=== PATIENT | male | born 1960 | race Caucasian/White ===

== ENCOUNTER 2017-06-09 01:52 | Inpatient (IN) | payer MEDICAID ==
[2017-06-09 02:17] LABS: URINE MICROSCOPIC INDICATED? YES; URINE SOURCE RANDOM
[2017-06-09 02:20] LABS: % BASOPHILS 0.4 % (0.0-2.0); % EOSINOPHILS 1.3 % (0.0-5.0); % LYMPHOCYTES 20.1 % (20.0-50.0); % MONOCYTES 4.3 % (2.0-10.0); % NEUTROPHILS 73.9 % (40.0-80.0); EOSINOPHILE ABSOLUTE 0.2 Th/cmm (0.1-0.4); HEMATOCRIT 50.6 % (41.0-60); HEMOGLOBIN 17.1 gm/dL (12-16); LYMPHOCYTE ABSOLUTE 2.3 Th/cmm (1.5-3.0); MEAN CELL VOLUME 94.4 fl (80-99); MEAN CORPUSCULAR HGB CONC 33.9 pg (28.0-36.0); MEAN PLATELET VOLUME 8.6 fl; MONOCYTE ABSOLUTE 0.5 Th/cmm (0.3-1.0); NEUTROPHILE ABSOLUTE 8.6 Th/cmm (1.8-8.0); PLATELET COUNT 245 Th/cmm (150-400); RED BLOOD COUNT 5.36 Mil/cmm (4.30-5.70); RED CELL DISTRIBUTION WIDTH 12.9 % (11.5-20.0); WHITE BLOOD COUNT 11.6 Th/cmm (4.8-10.8)
[2017-06-09 02:21] LABS: URINE BILIRUBIN NEGATIVE (NEGATIVE); URINE BLOOD NEGATIVE (NEGATIVE); URINE CLARITY CLEAR (CLEAR); URINE COLOR YELLOW; URINE GLUCOSE (UA) NEGATIVE (NEGATIVE); URINE KETONE NEGATIVE (NEGATIVE); URINE LEUKOCYTE ESTERASE NEGATIVE (NEGATIVE); URINE NITRATE NEGATIVE (NEGATIVE); URINE PH 5.5 (4.6 - 8.0); URINE PROTEIN NEGATIVE (NEGATIVE); URINE UROBILINOGEN 0.2 E.U./dL (0.2 - 1.0)
[2017-06-09 02:22] LABS: URINE EPITHELIAL CELLS OCCASIONAL /lpf (FEW); URINE RBC NONE SEEN /hpf (0-5); URINE WBC 0-2 /hpf (0-5)
[2017-06-09 02:23] LABS: URINE BACTERIA OCCASIONAL /hpf (NONE SEEN)
[2017-06-09 02:34] LABS: ALB/GLOB RATIO 1.6 (1.0-1.8); ALBUMIN 4.6 gm/dL (4.2-5.5); ALKALINE PHOSPHATASE 96 U/L (34-104); AMYLASE SERUM 27 U/L (29-103); ANION GAP 9.6 (7.0-16.0); BILIRUBIN,TOTAL 0.4 mg/dL (0.3-1.0); BUN - UREA NITROGEN 16 mg/dL (7-25); CALCIUM SERUM 9.3 mg/dL (8.6-10.3); CARBON DIOXIDE 27.7 mEq/L (21.0-31.0); CHLORIDE 103 mEq/L (98-107); CREATININE - SERUM 0.9 mg/dL (0.7-1.3); GFR AFRICAN-AMERICAN > 60.0 ml/min (>90); GFR NON AFRICAN-AMERICAN > 60.0 ml/min; GLUCOSE 118 mg/dL (70-105); LIPASE 31 U/L (11-82); POTASSIUM SERUM 4.3 mEq/L (3.5-5.1); SGOT 18 U/L (13-39); SGPT/ALT 18 U/L (7-52); SODIUM SERUM 136 mEq/L (136-145); TOTAL PROTEIN,SERUM 7.5 gm/dL (6.0-8.3)
--- NOTE | 2017-06-09 02:36 | ED Physician Chart ---
ED Chief Complaint/HPI - Patient Information Date Seen:: 06/09/17 Time Seen:: 02:29 Chief Complaint:: Abdominal pain History of Present Illness:: 57 yo overweight male first developed sudden onset of epigastric abdominal pain 2 days ago. The crampy pain was 4/10, lasted for 4 hours, subsided spontaneously. Today, the similar pain started at 9pm, crampy pain, 8/10, nausea , no vomiting, radiating to back. The patient vomited once with food content in the ER. Afterwards, the epigastric abdominal pain decreased to 4/10. He had a history of umbilical hernia due to blunt trauma 12 yrs ago followed by surgical repair. The umbilical hernia recurred 3 years ago. Allergies:: Allergies Allergy/AdvReac Type Severity Reaction Status Date / Time ibuprofen [From Advil] Allergy Verified 06/09/17 02:00 Vitals:: Vital Signs - 8 hr 06/09/17 01:55 Temp 97.9 F HR 99 RR 18 BP 160/72 O2 Sat % 98 ED Review of Systems - Review of Systems General/Constitutional: No fever, No chills Skin: No skin lesions Head: No headache Eyes: No loss of vision ENT: No earache Neck: No neck pain Cardio Vascular: No chest pain, No palpitations Pulmonary: No SOB GI: Nausea, Pain ED Past Medical History - Past Medical History Past Medical History: No significant medical hx Social History: Smoker, Alcohol, No Drug Use Surgical History: other (ventral hernia repair) Family Medical History - Family Member Mother History Unknown: Yes Ethnicity: ED Physical Exam - Physical Examination General/Constitutional: Awake, Alert Head: Atraumatic Eyes: PERRL, EOMI Skin: No skin lesions ENMT: Nasal exam nl Neck: Full ROM w/o pain Respiratory: Clear to Auscultation, No Wheeze/Rhonchi/Rales Cardio Vascular: RRR, No murmur, gallop, rubs, NL S1 S2 Other GI comments:: Epigastric tenderness, non-distended, no CVA percussion tenderness. A small umbilical hernia. : No CVA tenderness Extremities: normal strength in all extremities Neuro/Psych: No focal deficits ED Labs/Radiology/EKG Results - Lab Results Results: Laboratory Tests 06/09/17 06/09/17 02:00 02:12 WBC 11.6 H RBC 5.36 Hgb 17.1 Hct 50.6 MCV 94.4 MCH 32.0 H MCHC Differential 33.9 RDW 12.9 Plt Count 245 MPV 8.6 Neutrophils % 73.9 Lymphocytes % 20.1 Monocytes % 4.3 Eosinophils % 1.3 Basophils % 0.4 Urine Source RANDOM Urine Color YELLOW Urine Clarity CLEAR Urine pH 5.5 Ur Specific [place] 1.025 Urine Protein NEGATIVE Urine Glucose (UA) NEGATIVE Urine Ketones NEGATIVE Urine Blood NEGATIVE Urine Nitrate NEGATIVE Urine Bilirubin NEGATIVE Urine Urobilinogen 0.2 Ur Leukocyte Esterase NEGATIVE Urine RBC NONE SEEN Urine WBC 0-2 Ur Epithelial Cells OCCASIONAL Urine Bacteria OCCASIONAL - Radiology Results Results: CT abdomen non-contrast: cholelithiasis and cholecystitis ED Assessment - Assessment General Assessment: 57 yo male with sudden onset of epigastric abdominal pain with N/V. CT abdomen showed cholelithiasis and cholecystitis. Critical Care Time: 50 min Excludes all billable procedures: Yes This condition life threatening/high prob of deterioration: No Assessment/Comments:: CBC, CMP, amylase, lipase CT abdomen Morphine NS 1L IV bolus Zosyn Admit to med surg ED Septic Shock - . Is Septic Shock (SBP<90, OR Lactate>4 mmol\L) present?: No - <6hrs of presentation: Vital Signs: Vital Signs - 8 hr 06/09/17 01:55 Temp 97.9 F HR 99 RR 18 BP 160/72 O2 Sat % 98 ED Reassessment (Disposition) - Reassessment Reassessment Condition:: Improved - Patient Disposition Discharge/Transfer:: Acute Care w/in this hosp Admitting Medical Physician:: Oscar Quintanilla
[2017-06-09 02:40] LABS: AMPHETAMINE URINE NEGATIVE (NEGATIVE); BARBITURATES URINE NEGATIVE (NEGATIVE); BENZODIAZEPINES QUAL URINE NEGATIVE (NEGATIVE); CANNABINOID THC NEGATIVE (NEGATIVE); COCAINE METABOLITE QUAL URINE NEGATIVE (NEGATIVE); METHADONE URINE NEGATIVE (NEGATIVE); METHAMPHETAMINES QUAL URINE NEGATIVE (NEGATIVE); OPIATES (MORPHINE) QUAL. URINE NEGATIVE (NEGATIVE); PHENCYCLIDINE (PCP) URINE NEGATIVE (NEGATIVE); TRICYCLICS (TCA) QUAL. URINE NEGATIVE (NEGATIVE)
[2017-06-09] MEDS ORDERED: Morphine Sulfate 2 mg/mL 1mL Syr ONE ×2 (03:05)
[2017-06-09] MEDS ORDERED: Sodium Chloride 0.9% 1,000 ML IV ONE ×2 (04:48)
[2017-06-09] MEDS ORDERED: Piperacillin Sodium/Tazobact 3.375 gm Vial IV ONE ×2 (04:53)
[2017-06-09] MEDS ORDERED: Sodium Chloride 0.9% 1,000 ML IV SCH ×4 (06:03→08:45)
[2017-06-09] MEDS ORDERED: HYDROmorphone 1 mg/mL 1mL Syr IVP PRN ×2 (06:03)
--- NOTE | 2017-06-09 07:10 | Diagnostic Imaging Report ---
Exam: CT examination of the abdomen pelvis. HISTORY: Abdominal pain. Total DLP equals 548 CTDI equals 10.3 Findings: Multiple contiguous thin section of the abdomen pelvis obtained from lower thorax to pubic symphysis without administration of oral or intravenous contrast material. No prior studies available for comparison. The study demonstrates normal aeration of lung parenchyma. There is evidence for small hiatal hernia The liver and spleen intact. There is evidence for cholelithiasis large calculus in the most dependent portion of gallbladder measuring 1.4 cm diameter. Ultrasound examination of gallbladder is recommended. Gallbladder wall somewhat thickened. The adrenal glands intact. The kidneys demonstrate no evidence of obstructive uropathy or nephrolithiasis. The bowel gas distribution nonspecific. The appendix is intact. Mild atherosclerotic calcification of the iliac vessels appreciated. There is no evidence of diverticular disease of diverticulitis. There is evidence for left inguinal hernia containing fat. Bony structures demonstrate no evidence for lytic or blastic changes. Degenerative changes of lower lumbar cervical spine with anterior listhesis of L5 L5 vertebral bodies. The urinary demonstrates mild thickening of the urinary bladder wall which might be due to lack of distention. IMPRESSION: 1. Distended gallbladder, cholelithiasis. Ultrasound examination of the gallbladder is recommended. 2. Small hiatal hernia. 3. Urinary bladder wall thickening.
--- NOTE | 2017-06-09 08:55 | History and Physical ---
History of Present Illness - HPI Chief Complaint: Abdominal pain HPI: Patient reports that 4 days ago started with middle abdominal pain that lasted x 4 hours, pain came back yesterday but more iontense, reazon why he came to ER. Vital Signs: Last Vital Signs Temp 98.1 F 06/09/17 08:00 Pulse 60 06/09/17 08:00 Resp 18 06/09/17 08:00 BP 117/67 06/09/17 08:00 Pulse Ox 98 06/09/17 08:00 Past Medical History Cardiovascular: Report: No Pertinent Hx Pulmonary: Report: No Pertinent Hx [employer]: Report: No Pertinent Hx GI: Report: No Pertinent Hx Psych: Report: No Pertinent Hx Musculoskeletal: Report: No Pertinent Hx Rheumatologic: Report: No pertinent Hx Infectious Disease: Report: No Pertinent Hx Renal/: Report: No Pertinent Hx Endocrine: Report: No Pertinent Hx Dermatology: Report: No Pertinent Hx - Past Surgical History Past Surgical History: Other (Umbilical hernia repair) Family Medical History - Family Member Mother History Unknown: Yes Ethnicity: Social History Smoke: <1 pack per day Alcohol: Social Drugs: None Lives: With Family Domestic Violence: Negative - Medications Home Medications: Home Medication Medication Instructions Recorded Type NK [No Home Meds] 06/09/17 History - Allergies Allergies/Adverse Reactions: Allergies Allergy/AdvReac Type Severity Reaction Status Date / Time ibuprofen [From Advil] Allergy Verified 06/09/17 02:00 Review of Systems - Review of Systems Constitutional: Report: No Significant Eyes: Report: No Significant ENT: Report: No Significant Respiratory: Report: No Significant Cardiovascular: Report: No Significant Gastrointestinal: Report: Abdominal Pain Genitourinary: Report: No Significant Musculoskeletal: Report: No Significant Skin: Report: No Significant Neurological: Report: No Significant Physical Exam - Physical Exam HEENT: Report: Ears Nose Throat within normal limits Neck: Report: Within normal limits Cardiovascular Systems: Report: Regular, Rate and Rhythm Respiratory: Report: Breath Sounds are within normal limits Abdomen: Report: Tender to palpation (Small umbilical hernia) Back: Report: Inspection of back is within normal limits. Extremities: Report: Non-tender to palpation. Skin: Report: Color of skin is within normal limits Neuro/Psych: Report: Mood affect is within normal limits - Lab Results All Lab Results last 24 hours: Laboratory Results - last 24 hr 06/09/17 06:07 POC Glucose 125 H - Assessment Assessment: Patient is awake, alert, calm in no acute distress. Abdominal CT shows Cholecystitis and cholelithiasis. - Plan Plan: Patient is in NPO, IV NS, AB, pain control. Abdominal US requested. Surgery consult requested.
--- NOTE | 2017-06-09 09:49 | General Progress Note ---
Subjective - Review of Systems Service Date: 06/09/17 Events since last encounter: consult dictated CT scan noted labs normal PE minimal tenderness Plan: non urgent surgery check insurance status, refer to [facility]? Objective - Results Result Diagrams: 06/09/17 02:12 06/09/17 02:12 Recent Labs: Laboratory Last Values WBC 11.6 Th/cmm (4.8-10.8) H 06/09/17 02:12 RBC 5.36 Mil/cmm (4.30-5.70) 06/09/17 02:12 Hgb 17.1 gm/dL (12-16) 06/09/17 02:12 Hct 50.6 % (41.0-60) 06/09/17 02:12 MCV 94.4 fl (80-99) 06/09/17 02:12 MCH 32.0 pg (26.0-30.0) H 06/09/17 02:12 MCHC Differential 33.9 pg (28.0-36.0) 06/09/17 02:12 RDW 12.9 % (11.5-20.0) 06/09/17 02:12 Plt Count 245 Th/cmm (150-400) 06/09/17 02:12 MPV 8.6 fl 06/09/17 02:12 Neutrophils % 73.9 % (40.0-80.0) 06/09/17 02:12 Lymphocytes % 20.1 % (20.0-50.0) 06/09/17 02:12 Monocytes % 4.3 % (2.0-10.0) 06/09/17 02:12 Eosinophils % 1.3 % (0.0-5.0) 06/09/17 02:12 Basophils % 0.4 % (0.0-2.0) 06/09/17 02:12 Sodium 136 mEq/L (136-145) 06/09/17 02:12 Potassium 4.3 mEq/L (3.5-5.1) 06/09/17 02:12 Chloride 103 mEq/L (98-107) 06/09/17 02:12 Carbon Dioxide 27.7 mEq/L (21.0-31.0) 06/09/17 02:12 Anion Gap 9.6 (7.0-16.0) 06/09/17 02:12 BUN 16 mg/dL (7-25) 06/09/17 02:12 Creatinine 0.9 mg/dL (0.7-1.3) 06/09/17 02:12 Est GFR ( Amer) > 60.0 ml/min (>90) 06/09/17 02:12 Est GFR (Non-Af Amer) > 60.0 ml/min 06/09/17 02:12 BUN/Creatinine Ratio 17.8 06/09/17 02:12 Glucose 118 mg/dL (70-105) H 06/09/17 02:12 POC Glucose 125 MG/DL (70 - 105) H 06/09/17 06:07 Calcium 9.3 mg/dL (8.6-10.3) 06/09/17 02:12 Total Bilirubin 0.4 mg/dL (0.3-1.0) 06/09/17 02:12 AST 18 U/L (13-39) 06/09/17 02:12 ALT 18 U/L (7-52) 06/09/17 02:12 Alkaline Phosphatase 96 U/L (34-104) 06/09/17 02:12 Total Protein 7.5 gm/dL (6.0-8.3) 06/09/17 02:12 Albumin 4.6 gm/dL (4.2-5.5) 06/09/17 02:12 Globulin 2.9 gm/dL 06/09/17 02:12 Albumin/Globulin Ratio 1.6 (1.0-1.8) 06/09/17 02:12 Amylase 27 U/L (29-103) L 06/09/17 02:12 Lipase 31 U/L (11-82) 06/09/17 02:12 Urine Source RANDOM 06/09/17 02:00 Urine Color YELLOW 06/09/17 02:00 Urine Clarity CLEAR (CLEAR) 06/09/17 02:00 Urine pH 5.5 (4.6 - 8.0) 06/09/17 02:00 Ur Specific [place] 1.025 (1.005-1.030) 06/09/17 02:00 Urine Protein NEGATIVE mg/dL (NEGATIVE) 06/09/17 02:00 Urine Glucose (UA) NEGATIVE mg/dL (NEGATIVE) 06/09/17 02:00 Urine Ketones NEGATIVE mg/dL (NEGATIVE) 06/09/17 02:00 Urine Blood NEGATIVE (NEGATIVE) 06/09/17 02:00 Urine Nitrate NEGATIVE (NEGATIVE) 06/09/17 02:00 Urine Bilirubin NEGATIVE (NEGATIVE) 06/09/17 02:00 Urine Urobilinogen 0.2 E.U./dL (0.2 - 1.0) 06/09/17 02:00 Ur Leukocyte Esterase NEGATIVE (NEGATIVE) 06/09/17 02:00 Urine RBC NONE SEEN /hpf (0-5) 06/09/17 02:00 Urine WBC 0-2 /hpf (0-5) 06/09/17 02:00 Ur Epithelial Cells OCCASIONAL /lpf (FEW) 06/09/17 02:00 Urine Bacteria OCCASIONAL /hpf (NONE SEEN) 06/09/17 02:00 Urine Opiates Screen NEGATIVE (NEGATIVE) 06/09/17 02:00 Urine Methadone Screen NEGATIVE (NEGATIVE) 06/09/17 02:00 Ur Barbiturates Screen NEGATIVE (NEGATIVE) 06/09/17 02:00 Ur Tricyclics Screen NEGATIVE (NEGATIVE) 06/09/17 02:00 Ur Phencyclidine Scrn NEGATIVE (NEGATIVE) 06/09/17 02:00 Amphetamines Screen NEGATIVE (NEGATIVE) 06/09/17 02:00 U Methamphetamines Scrn NEGATIVE (NEGATIVE) 06/09/17 02:00 U Benzodiazepines Scrn NEGATIVE (NEGATIVE) 06/09/17 02:00 U Cocaine Metab Screen NEGATIVE (NEGATIVE) 06/09/17 02:00 U Cannabinoids Screen NEGATIVE (NEGATIVE) 06/09/17 02:00 - Physical Exam Vitals and I&O: Vital Signs Temp 98.1 F 06/09/17 08:00 Pulse 60 06/09/17 08:00 Resp 18 06/09/17 08:00 BP 117/67 06/09/17 08:00 Pulse Ox 98 06/09/17 08:00 Intake & Output 06/08/17 06/09/17 06/09/17 18:59 06:59 18:59 Intake Total 616.667 Balance 616.667 Intake: Intake, IV Amount 616.667 Piperacillin Sodium/ 50 Tazobact 3.375 gm In Sodium Chloride 0.9% 50 ml @ 100 mls/hr IV X1 ONE Rx#:[id number] Sodium Chloride 0.9% 1, 566.667 000 ml @ Wide Open IV . Q0M ONE Rx#:[id number] Active Medications: Current Medications Hydromorphone HCl (Dilaudid) 1 mg IVP Q6HR PRN PRN Reason: Pain (Severe) Stop: 08/08/17 06:02 Piperacillin Sod/Tazobactam (Sod 3.375 gm/ Sodium Chloride) 50 mls @ 100 mls/ hr IV Q6HR TOM Stop: 08/08/17 11:59 Sodium Chloride (Nacl 0.9%) 1,000 mls @ 100 mls/hr IV .Q10H TOM Stop: 08/08/17 08:44 Pantoprazole Sodium (Protonix) 40 mg IVP DAILY TOM Stop: 08/08/17 08:59 - Procedures Procedures: Procedures Procedure Code Date INJECT/INFUSE NEC 99.29 03/17/11
--- NOTE | 2017-06-09 10:42 | Diagnostic Imaging Report ---
Exam: Ultrasound summation abdomen. HISTORY: Cholelithiasis. Findings: Real-time ultrasound examination abdomen performed multiple planes. The study demonstrates normal echogenicity liver parenchyma. The gallbladder is distended with thickening of gallbladder wall. There is no evidence of pericholecystic fluid collection. There is evidence for cholelithiasis ,calculus measures 2 cm diameter. The common bile duct not visualized ,the pancreas poorly seen. There is no evidence of obstructive uropathy or nephrolithiasis. Right kidney measures 11.1 x 4.8 x 5.1. Left kidney measures 11.5 x 5.6 x 5.2 cm. The spleen is intact. No free fluid is noted. IMPRESSION: cholelithiasis, distended gallbladder thickening gallbladder wall clinical correlation recommended.
--- NOTE | 2017-06-09 14:09 | Consultation ---
DATE OF CONSULTATION: 06/09/2017 REFERRING PHYSICIAN: Dr. Quintanilla. CHIEF COMPLAINT: Abdominal pain. Thank you for referring this patient to me. HISTORY OF PRESENT ILLNESS: A 57-year-old male who comes in because of history of abdominal pain with nausea and vomiting. In the Emergency Room, he underwent CT scan which showed stone in the gallbladder neck, which was rather large. Ultrasound was done, report of which is not back today. LABORATORY STUDIES: WBC is slightly high at 11,600. Liver function tests are normal. Amylase is low at 27. Surgery in the past, umbilical hernia repair 12 years ago, ____. The patient claims that 2 years ago, he developed tendonitis in the right foot and right shoulder, which made him disabled and has not worked since. PHYSICAL EXAMINATION: Umbilical hernia was noted. There is minimal tenderness in right upper quadrant. RECOMMENDATIONS: In view of the first episode of cholecystitis with no urgency for surgery. The patient's insurance status not verified, possibility of referring him to [facility] might be considered. We will follow as needed. JOB# [id number]
== END 2017-06-09 15:18 | disposition home or self-care (01) ==
LOC: ER 01:52 → MSI 05:09
PROVIDERS: ADMIT General Practice; ATTEND General Practice
DX: K80.10 Calculus of gallbladder with chronic cholecystitis without obstruction (principal); E66.3 Overweight; K42.9 Umbilical hernia without obstruction or gangrene; F17.210 Nicotine dependence, cigarettes, uncomplicated; Z88.6 Allergy status to analgesic agent; Z68.27 Body mass index [BMI] 27.0-27.9, adult
CPT/HCPCS: 36415-UA; 76700-TC; 80053-TC; 80307; 81001-TC; 82150-TC; 82948-90; 83690-TC; 85025-TC; 96375; C9113; J2270; J2405; J2543; J7030; Z7502

== ENCOUNTER 2017-06-17 16:21 | Emergency (ER) | payer MEDICAID ==
[2017-06-17] MEDS ORDERED: Sodium Chloride 0.9% 1,000 ML IV ONE ×2 (16:32)
--- NOTE | 2017-06-17 16:40 | ED Physician Chart ---
ED Chief Complaint/HPI - Patient Information Date Seen:: 06/17/17 Time Seen:: 16:25 Chief Complaint:: epigastric pain History of Present Illness:: Patient's had epigastric pain for 8 days. He vomited once but had no diarrhea. No chills or fever. Patient was seen here 8 days ago for the same pain. Ultrasound showed a distended gallbladder with thickening of the gallbladder wall and a 2 cm calculus. CAT scan showed a 1.4 cm gallbladder stone. Allergies:: Allergies Allergy/AdvReac Type Severity Reaction Status Date / Time No Known Allergies Allergy Verified 06/17/17 16:33 Historian:: Patient, Family Member Review:: Nurse's Note Reviewed ED Review of Systems - Review of Systems General/Constitutional: No fever, No chills Skin: No skin lesions Head: No headache Eyes: No loss of vision ENT: No earache Neck: No neck pain Cardio Vascular: No chest pain, No palpitations Pulmonary: No SOB GI: Nausea, Vomiting, No diarrhea G/U: No dysuria Musculoskeletal: No bone or joint pain Endocrine: No polyuria, No polydipsia Psychiatric: No prior psych history Hematopoietic: No bruising Allergic/Immuno: No urticaria Neurological: No syncope ED Past Medical History - Past Medical History Past Medical History: No significant medical hx Family Medical History - Family Member Mother History Unknown: Yes Ethnicity: Living Status: Still Living Hx Family Cancer: No Hx Family Coronary Artery Disease: No Hx Family Congestive Heart Failure: No Hx Family Hypertension: No Hx Family Stroke: No Hx Family Diabetes: No Hx Family Seizures: No Hx Family Dementia: No Hx Family AIDS: No Hx Family HIV: No Hx Family COPD: No Hx Family Hepatitis: No Hx Family Psychiatric Problems: No Hx Family Tuberculosis: No ED Physical Exam - Physical Examination General/Constitutional: Well-developed, well-nourished, Alert, No distress Head: Atraumatic Eyes: Lids, conjuctiva normal, PERRL Skin: Nl inspection ENMT: External ears, nose nl Neck: No nuchal rigidity Respiratory: Nl effort/Exclusion, Clear to Auscultation Cardio Vascular: RRR, No murmur, gallop, rubs, NL S1 S2 GI: No organomegaly, No hernia, Normal BS's, Nondistended, No mass/bruits, No McBurney tenderness Other GI comments:: Epigastric and right upper quadrant tenderness : No CVA tenderness Extremities: Normal digits & nails Neuro/Psych: No focal deficits ED Labs/Radiology/EKG Results - Lab Results Results: Laboratory Results - last 24 hr 06/17/17 06/17/17 06/17/17 16:38 16:38 16:38 WBC 13.3 H RBC 5.18 Hgb 16.3 Hct 48.9 MCV 94.4 MCH 31.5 H MCHC Differential 33.3 RDW 12.5 Plt Count 251 MPV 8.8 Neutrophils % 85.8 H Lymphocytes % 9.8 L Monocytes % 2.8 Eosinophils % 0.4 Basophils % 1.2 Sodium 131 L Potassium 4.4 Chloride 99 Carbon Dioxide 26.1 Anion Gap 10.3 BUN 16 Creatinine 0.9 Est GFR ( Amer) > 60.0 Est GFR (Non-Af Amer) > 60.0 BUN/Creatinine Ratio 17.8 Glucose 122 H Whole Bld Lactic Acid 1.43 Calcium 9.6 Total Bilirubin 0.8 AST 16 ALT 23 Alkaline Phosphatase 88 Total Protein 7.5 Albumin 4.6 Globulin 2.9 Albumin/Globulin Ratio 1.6 Lipase 9 L ED Assessment - Assessment General Assessment: At 1815 patient apparently sleeping and when awakened he stated the pain was much improved. ED Septic Shock - . Is Septic Shock (SBP<90, OR Lactate>4 mmol\L) present?: No ED Reassessment (Disposition) - Reassessment Reassessment Condition:: Improved - Diagnosis Diagnosis:: Biliary colic; leukocytosis - Aftercare/Follow up Instructions Aftercare/Follow-Up Instructions:: Refer to Discharge Instructions Medication Prescribed:: Ibuprofen 400 mg #30 to take 1 3 times a day as necessary for pain - Patient Disposition Discharge/Transfer:: Home Condition at Disposition:: Stable, Improved
[2017-06-17 16:47] LABS: % BASOPHILS 1.2 % (0.0-2.0); % EOSINOPHILS 0.4 % (0.0-5.0); % LYMPHOCYTES 9.8 % (20.0-50.0); % MONOCYTES 2.8 % (2.0-10.0); % NEUTROPHILS 85.8 % (40.0-80.0); BASOPHILE ABSOLUTE 0.2 Th/cumm (0-0.2); EOSINOPHILE ABSOLUTE 0.1 Th/cmm (0.1-0.4); HEMATOCRIT 48.9 % (41.0-60); HEMOGLOBIN 16.3 gm/dL (12-16); LYMPHOCYTE ABSOLUTE 1.3 Th/cmm (1.5-3.0); MEAN CELL VOLUME 94.4 fl (80-99); MEAN CORPUSCULAR HEMOGLOBIN 31.5 pg (26.0-30.0); MEAN CORPUSCULAR HGB CONC 33.3 pg (28.0-36.0); MEAN PLATELET VOLUME 8.8 fl; MONOCYTE ABSOLUTE 0.4 Th/cmm (0.3-1.0); NEUTROPHILE ABSOLUTE 11.3 Th/cmm (1.8-8.0); PLATELET COUNT 251 Th/cmm (150-400); RED BLOOD COUNT 5.18 Mil/cmm (4.30-5.70); RED CELL DISTRIBUTION WIDTH 12.5 % (11.5-20.0)
[2017-06-17 17:00] LABS: WHITE BLOOD COUNT 13.3 Th/cmm (4.8-10.8)
[2017-06-17 17:02] LABS: ALB/GLOB RATIO 1.6 (1.0-1.8); ALBUMIN 4.6 gm/dL (4.2-5.5); ALKALINE PHOSPHATASE 88 U/L (34-104); ANION GAP 10.3 (7.0-16.0); BILIRUBIN,TOTAL 0.8 mg/dL (0.3-1.0); BUN - UREA NITROGEN 16 mg/dL (7-25); CALCIUM SERUM 9.6 mg/dL (8.6-10.3); CARBON DIOXIDE 26.1 mEq/L (21.0-31.0); CHLORIDE 99 mEq/L (98-107); CREATININE - SERUM 0.9 mg/dL (0.7-1.3); GFR AFRICAN-AMERICAN > 60.0 ml/min (>90); GFR NON AFRICAN-AMERICAN > 60.0 ml/min; GLUCOSE 122 mg/dL (70-105); LIPASE 9 U/L (11-82); POTASSIUM SERUM 4.4 mEq/L (3.5-5.1); SGOT 16 U/L (13-39); SGPT/ALT 23 U/L (7-52); SODIUM SERUM 131 mEq/L (136-145); TOTAL PROTEIN,SERUM 7.5 gm/dL (6.0-8.3)
== END 2017-06-17 18:50 | disposition home or self-care (01) ==
LOC: ER 16:21
DX: K80.50 Calculus of bile duct without cholangitis or cholecystitis without obstruction (principal); D72.829 Elevated white blood cell count, unspecified
CPT/HCPCS: 99284; 96374; 36415; 83605; 85025; 83690; 80053; 87040; J1885; J7030; Z7502

== ENCOUNTER 2017-08-02 09:53 | Inpatient (IN) | payer MEDICAID ==
[2017-08-02 10:14] LABS: URINE MICROSCOPIC INDICATED? YES; URINE SOURCE RANDOM
[2017-08-02 10:16] LABS: % BASOPHILS 0.7 % (0.0-2.0); % EOSINOPHILS 0.2 % (0.0-5.0); % LYMPHOCYTES 7.1 % (20.0-50.0); % MONOCYTES 5.8 % (2.0-10.0); % NEUTROPHILS 86.2 % (40.0-80.0); BASOPHILE ABSOLUTE 0.1 Th/cumm (0-0.2); HEMOGLOBIN 14.9 gm/dL (12-16); LYMPHOCYTE ABSOLUTE 1.1 Th/cmm (1.5-3.0); MEAN CELL VOLUME 91.7 fl (80-99); MEAN CORPUSCULAR HEMOGLOBIN 31.9 pg (26.0-30.0); MEAN CORPUSCULAR HGB CONC 34.8 pg (28.0-36.0); MONOCYTE ABSOLUTE 0.9 Th/cmm (0.3-1.0); NEUTROPHILE ABSOLUTE 12.8 Th/cmm (1.8-8.0); RED BLOOD COUNT 4.67 Mil/cmm (4.30-5.70); RED CELL DISTRIBUTION WIDTH 13.4 % (11.5-20.0)
[2017-08-02 10:19] LABS: HEMATOCRIT 42.9 % (41.0-60); WHITE BLOOD COUNT 14.9 Th/cmm (4.8-10.8)
[2017-08-02 10:20] LABS: PLATELET COUNT 271 Th/cmm (150-400)
[2017-08-02 10:26] LABS: URINE BILIRUBIN NEGATIVE (NEGATIVE); URINE CLARITY CLEAR (CLEAR); URINE COLOR YELLOW; URINE GLUCOSE (UA) NEGATIVE (NEGATIVE); URINE ICTOTEST NEGATIVE (NEGATIVE); URINE KETONE NEGATIVE (NEGATIVE)
[2017-08-02 10:27] LABS: URINE BLOOD MODERATE (NEGATIVE); URINE LEUKOCYTE ESTERASE NEGATIVE (NEGATIVE); URINE NITRATE NEGATIVE (NEGATIVE); URINE PROTEIN 30 mg/dL (NEGATIVE)
[2017-08-02 10:29] LABS: URINE BACTERIA FEW /hpf (NONE SEEN); URINE EPITHELIAL CELLS OCCASIONAL /lpf (FEW); URINE WBC 0-2 /hpf (0-5)
--- NOTE | 2017-08-02 10:30 | Diagnostic Imaging Report ---
CT abdomen and pelvis without intravenous contrast Indication: Abdominal pain, rule out appendicitis Comparison: CT abdomen and pelvis on 07/08/2017, Technique: Axial images were obtained from the lung bases to the bilateral proximal femurs without IV contrast. Coronal reconstructions were made. total DLP: 550, CTDI10.3 FINDINGS: Hypoventilatory and atelectatic changes of the lung bases are seen with minimal bibasilar passive atelectatic changes. Assessment of the solid organs is limited due to lack of IV contrast. No evidence of focal hepatic lesions. Gallstones are noted including gallstone near the gallbladder neck region with surrounding inflammatory changes seen in this region and along the adjacent duodenum. No focal splenic or pancreatic lesions. No focal adrenal lesion. No hydronephrosis or focal renal lesions. Moderate-sized fat-containing left inguinal hernia is noted. Moderate amount of stool is noted. No evidence of appendicitis. Trace free fluid of the right upper quadrant is noted. Small amount of free fluid in the pelvis is also noted. No free air. Mild atherosclerosis is noted. Degenerative changes of the spine are noted. IMPRESSION: No evidence of acute appendicitis. Gallstones including stones near the gallbladder neck/cystic duct region. Inflammatory changes seen surrounding the gallbladder extending to the regional fat planes including along the duodenal region with small amount of free fluid. Findings are most suggestive of acute cholecystitis. Clinical correlation is recommended. A nuclear medicine HIDA scan may be obtained for further assessment if needed. Additional small amount of free fluid in the pelvis. Moderate size fat-containing left inguinal hernia.
[2017-08-02 10:34] LABS: ANION GAP 12.4 (7.0-16.0); BUN - UREA NITROGEN 13 mg/dL (7-25); CALCIUM SERUM 9.4 mg/dL (8.6-10.3); CARBON DIOXIDE 26.2 mEq/L (21.0-31.0); CHLORIDE 98 mEq/L (98-107); CREATININE - SERUM 0.7 mg/dL (0.7-1.3); GFR AFRICAN-AMERICAN > 60.0 ml/min (>90); GFR NON AFRICAN-AMERICAN > 60.0 ml/min; GLUCOSE 126 mg/dL (70-105); POTASSIUM SERUM 3.6 mEq/L (3.5-5.1); SODIUM SERUM 133 mEq/L (136-145)
[2017-08-02 10:35] LABS: ALB/GLOB RATIO 1.2 (1.0-1.8); ALBUMIN 4.3 gm/dL (4.2-5.5); BILIRUBIN,DIRECT 0.35 mg/dL (0.0-0.2); BILIRUBIN,TOTAL 1.3 mg/dL (0.3-1.0); TOTAL PROTEIN,SERUM 7.8 gm/dL (6.0-8.3)
[2017-08-02] MEDS ORDERED: metroNIDAZOLE 500mg/NS 100mL 500 MG/100 ML BAG IV ONE ×2 (11:00→13:46)
[2017-08-02] MEDS ORDERED: Levofloxacin 750mg/150mL 750 MG/150 ML BAG IV ONE ×2 (11:06→13:45)
[2017-08-02] MEDS ORDERED: Sodium Chloride 0.9% 500 ML IV ONE ×2 (15:30→18:32)
[2017-08-02] MEDS ORDERED: cefTRIAXone 2 GM in Sodium Chloride 0.9% 100 ML IV ONE ×2 (18:15→18:18)
--- NOTE | 2017-08-02 18:25 | ED Physician Chart ---
ED Chief Complaint/HPI - Patient Information Date Seen:: 08/02/17 Time Seen:: 10:30 Allergies:: Allergies Allergy/AdvReac Type Severity Reaction Status Date / Time No Known Allergies Allergy Verified 06/17/17 16:33 Vitals:: Vital Signs - 8 hr 08/02/17 08/02/17 08/02/17 12:00 14:00 16:40 Temp 98.0 F 98.2 F HR 99 92 RR 98 16 16 BP 125/78 129/75 110/68 O2 Sat % 95 96 97 Review:: Nurse's Note Reviewed ED Review of Systems - Review of Systems General/Constitutional: No fever Skin: No skin lesions Head: No headache Eyes: No loss of vision ENT: No earache Neck: No neck pain Cardio Vascular: No chest pain Pulmonary: No SOB GI: Nausea, No nausea, Pain Musculoskeletal: Bone or joint pain Psychiatric: No homicidal ideation Family Medical History - Family Member Mother History Unknown: Yes Ethnicity: Living Status: Still Living Hx Family Cancer: No Hx Family Coronary Artery Disease: No Hx Family Congestive Heart Failure: No Hx Family Hypertension: No Hx Family Stroke: No Hx Family Diabetes: No Hx Family Seizures: No Hx Family Dementia: No Hx Family AIDS: No Hx Family HIV: No Hx Family COPD: No Hx Family Hepatitis: No Hx Family Psychiatric Problems: No Hx Family Tuberculosis: No ED Physical Exam - Physical Examination General/Constitutional: Awake, Well-developed, well-nourished, Alert Eyes: Lids, conjuctiva normal Skin: Nl inspection ENMT: External ears, nose nl Neck: Nontender Respiratory: Nl effort/Exclusion Cardio Vascular: RRR ED Labs/Radiology/EKG Results - Lab Results Results: Laboratory Tests 08/02/17 08/02/17 08/02/17 10:08 10:08 10:08 WBC 14.9 H D RBC 4.67 Hgb 14.9 Hct 42.9 D MCV 91.7 MCH 31.9 H MCHC Differential 34.8 RDW 13.4 Plt Count 271 D MPV 8.0 Neutrophils % 86.2 H Lymphocytes % 7.1 L Monocytes % 5.8 Eosinophils % 0.2 Basophils % 0.7 Sodium Potassium Chloride Carbon Dioxide Anion Gap BUN Creatinine Est GFR ( Amer) Est GFR (Non-Af Amer) BUN/Creatinine Ratio Glucose Whole Bld Lactic Acid Calcium Total Bilirubin 1.3 H Direct Bilirubin 0.35 H AST 13 ALT 12 Alkaline Phosphatase 96 Total Protein 7.8 Albumin 4.3 Globulin 3.5 Albumin/Globulin Ratio 1.2 Lipase 4 L Urine Source RANDOM Urine Color YELLOW Urine Clarity CLEAR Urine pH 6.0 Ur Specific [place] 1.025 Urine Protein 30 H Urine Glucose (UA) NEGATIVE Urine Ketones NEGATIVE Urine Blood MODERATE H Urine Nitrate NEGATIVE Urine Bilirubin NEGATIVE Urine Ictotest NEGATIVE Urine Urobilinogen 1.0 Ur Leukocyte Esterase NEGATIVE Urine RBC 2-5 H Urine WBC 0-2 Ur Epithelial Cells OCCASIONAL Urine Bacteria FEW Urine Mucus FEW 08/02/17 08/02/17 10:08 10:25 WBC RBC Hgb Hct MCV MCH MCHC Differential RDW Plt Count MPV Neutrophils % Lymphocytes % Monocytes % Eosinophils % Basophils % Sodium 133 L Potassium 3.6 Chloride 98 Carbon Dioxide 26.2 Anion Gap 12.4 BUN 13 Creatinine 0.7 Est GFR ( Amer) > 60.0 Est GFR (Non-Af Amer) > 60.0 BUN/Creatinine Ratio 18.6 Glucose 126 H Whole Bld Lactic Acid 1.30 Calcium 9.4 Total Bilirubin Direct Bilirubin AST ALT Alkaline Phosphatase Total Protein Albumin Globulin Albumin/Globulin Ratio Lipase Urine Source Urine Color Urine Clarity Urine pH Ur Specific [place] Urine Protein Urine Glucose (UA) Urine Ketones Urine Blood Urine Nitrate Urine Bilirubin Urine Ictotest Urine Urobilinogen Ur Leukocyte Esterase Urine RBC Urine WBC Ur Epithelial Cells Urine Bacteria Urine Mucus - Radiology Results Results: hida scan positive ED Septic Shock - . Is Septic Shock (SBP<90, OR Lactate>4 mmol\L) present?: No - <6hrs of presentation: Vital Signs: Vital Signs - 8 hr 08/02/17 08/02/17 08/02/17 12:00 14:00 16:40 Temp 98.0 F 98.2 F HR 99 92 RR 98 16 16 BP 125/78 129/75 110/68 O2 Sat % 95 96 97 ED Discharge Plan - Patient Disposition Admit/Discharge/Transfer: Acute Care w/in this hosp
[2017-08-02] MEDS ORDERED: Sodium Chloride 0.9% 1,000 ML IV ONE (18:38)
[2017-08-02] MEDS ORDERED: D5-0.45NS 1,000 ML IV SCH (20:08)
[2017-08-02] MEDS ORDERED: Morphine Sulfate 2 mg/mL 1mL Syr IV PRN (20:08)
[2017-08-02 21:45] LABS: % BASOPHILS 0.1 % (0.0-2.0); % EOSINOPHILS 0.9 % (0.0-5.0); % LYMPHOCYTES 9.1 % (20.0-50.0); % MONOCYTES 6.8 % (2.0-10.0); % NEUTROPHILS 83.1 % (40.0-80.0); EOSINOPHILE ABSOLUTE 0.1 Th/cmm (0.1-0.4); HEMOGLOBIN 12.8 gm/dL (12-16); MEAN CELL VOLUME 92.7 fl (80-99); MEAN CORPUSCULAR HEMOGLOBIN 31.2 pg (26.0-30.0); MEAN CORPUSCULAR HGB CONC 33.7 pg (28.0-36.0); MEAN PLATELET VOLUME 7.9 fl; MONOCYTE ABSOLUTE 0.8 Th/cmm (0.3-1.0); NEUTROPHILE ABSOLUTE 9.4 Th/cmm (1.8-8.0); PLATELET COUNT 221 Th/cmm (150-400); RED BLOOD COUNT 4.11 Mil/cmm (4.30-5.70); RED CELL DISTRIBUTION WIDTH 13.3 % (11.5-20.0)
[2017-08-02 21:51] LABS: HEMATOCRIT 38.1 % (41.0-60); WHITE BLOOD COUNT 11.3 Th/cmm (4.8-10.8)
[2017-08-02 22:01] LABS: ALB/GLOB RATIO 1.3 (1.0-1.8); ALBUMIN 3.5 gm/dL (4.2-5.5); ALKALINE PHOSPHATASE 73 U/L (34-104); ANION GAP 10.3 (7.0-16.0); BILIRUBIN,TOTAL 0.6 mg/dL (0.3-1.0); BUN - UREA NITROGEN 16 mg/dL (7-25); CALCIUM SERUM 8.3 mg/dL (8.6-10.3); CARBON DIOXIDE 25.8 mEq/L (21.0-31.0); CHLORIDE 103 mEq/L (98-107); CREATININE - SERUM 0.7 mg/dL (0.7-1.3); GFR AFRICAN-AMERICAN > 60.0 ml/min (>90); GFR NON AFRICAN-AMERICAN > 60.0 ml/min; GLUCOSE 145 mg/dL (70-105); POTASSIUM SERUM 3.1 mEq/L (3.5-5.1); SGOT 10 U/L (13-39); SGPT/ALT 10 U/L (7-52); SODIUM SERUM 136 mEq/L (136-145); TOTAL PROTEIN,SERUM 6.3 gm/dL (6.0-8.3)
[2017-08-03] MEDS ORDERED: D5-0.45NS w/40 mEq KCL 1,000 ML IV SCH (06:27)
[2017-08-03 07:09] LABS: ALB/GLOB RATIO 1.1 (1.0-1.8); ALBUMIN 3.4 gm/dL (4.2-5.5); ALKALINE PHOSPHATASE 73 U/L (34-104); ANION GAP 12.3 (7.0-16.0); BILIRUBIN,TOTAL 0.8 mg/dL (0.3-1.0); BUN - UREA NITROGEN 15 mg/dL (7-25); CALCIUM SERUM 8.4 mg/dL (8.6-10.3); CARBON DIOXIDE 22.3 mEq/L (21.0-31.0); CHLORIDE 103 mEq/L (98-107); CREATININE - SERUM 0.7 mg/dL (0.7-1.3); GFR AFRICAN-AMERICAN > 60.0 ml/min (>90); GFR NON AFRICAN-AMERICAN > 60.0 ml/min; GLUCOSE 111 mg/dL (70-105); POTASSIUM SERUM 3.6 mEq/L (3.5-5.1); SGOT 12 U/L (13-39); SGPT/ALT 9 U/L (7-52); SODIUM SERUM 134 mEq/L (136-145); TOTAL PROTEIN,SERUM 6.4 gm/dL (6.0-8.3)
--- NOTE | 2017-08-03 08:06 | History and Physical ---
History of Present Illness - HPI Chief Complaint: Abd pain HPI: 57 year old male who presents to [facility] ER for abdominal pain, nausea and vomiting for the past few days prior to admission. While in the ER patient had a CT abd/pelvis which revealed acute cholelithiasis with cholecystitis. Patient was subsequently admitted for further evaluation and treatment. Initial Labwork revealed the following WBC's 14.9 H/H 14.9/31.9 platelets 271 Na 133 K 3.6 Bun/Cr 13/0.7 glu 126 Ca 9.4 Patient was subsequently admitted for further evaluation and treatment. Vital Signs: Last Vital Signs Temp 98.9 F 08/03/17 07:53 Pulse 89 08/03/17 07:53 Resp 18 08/03/17 07:53 BP 100/63 08/03/17 07:53 Pulse Ox 96 08/03/17 07:53 Past Medical History Cardiovascular: Report: No Pertinent Hx Pulmonary: Report: No Pertinent Hx [employer]UAL [employer]PERATOR: Report: No Pertinent Hx GI: Report: GERD, Peptic Ulcer Psych: Report: No Pertinent Hx Musculoskeletal: Report: No Pertinent Hx Rheumatologic: Report: No pertinent Hx Infectious Disease: Report: No Pertinent Hx Renal/: Report: Benign Prostatic Enlarg, Other (Kidney stones) Endocrine: Report: No Pertinent Hx Dermatology: Report: No Pertinent Hx - Past Surgical History Past Surgical History: No pertinent Hx Family Medical History - Family Member Mother History Unknown: Yes Ethnicity: Living Status: Still Living Hx Family Cancer: No Hx Family Coronary Artery Disease: No Hx Family Congestive Heart Failure: No Hx Family Hypertension: No Hx Family Stroke: No Hx Family Diabetes: No Hx Family Seizures: No Hx Family Dementia: No Hx Family AIDS: No Hx Family HIV: No Hx Family COPD: No Hx Family Hepatitis: No Hx Family Psychiatric Problems: No Hx Family Tuberculosis: No Social History Smoke: No (1 cigarette/day) Alcohol: Other (8 beers per weekend) Drugs: None Lives: With Family - Medications Home Medications: Home Medication Medication Instructions Recorded Type NK [No Home Meds] 08/02/17 History - Allergies Allergies/Adverse Reactions: Allergies Allergy/AdvReac Type Severity Reaction Status Date / Time No Known Allergies Allergy Verified 06/17/17 16:33 Review of Systems - Review of Systems Constitutional: Report: No Significant Eyes: Report: No Significant ENT: Report: No Significant Respiratory: Report: No Significant Cardiovascular: Report: No Significant Gastrointestinal: Report: Nausea, Vomiting, Abdominal Pain Genitourinary: Report: No Significant Musculoskeletal: Report: No Significant Skin: Report: No Significant Neurological: Report: No Significant Physical Exam - Physical Exam HEENT: Report: Ears Nose Throat within normal limits, Pharnyx within normal limits Neck: Report: Within normal limits Cardiovascular Systems: Report: +s1/s2 noted, Regular, Rate and Rhythm Respiratory: Report: Breath Sounds are within normal limits, Clear to Auscultation of lung hu Abdomen: Report: Bowel Sounds are within normal limits Back: Report: Inspection of back is within normal limits. Extremities: Report: Non-tender to palpation. Skin: Report: Color of skin is within normal limits Neuro/Psych: Report: Mood affect is within normal limits, A+Ox3 - Lab Results All Lab Results last 24 hours: Laboratory Results - last 24 hr 08/02/17 08/02/17 08/03/17 21:32 21:32 05:15 WBC 11.3 H D RBC 4.11 L Hgb 12.8 Hct 38.1 L D MCV 92.7 MCH 31.2 H MCHC Differential 33.7 RDW 13.3 Plt Count 221 MPV 7.9 Neutrophils % 83.1 H Lymphocytes % 9.1 L Monocytes % 6.8 Eosinophils % 0.9 Basophils % 0.1 Sodium 136 Potassium 3.1 L Chloride 103 Carbon Dioxide 25.8 Anion Gap 10.3 BUN 16 Creatinine 0.7 Est GFR ( Amer) > 60.0 Est GFR (Non-Af Amer) > 60.0 BUN/Creatinine Ratio 22.9 Glucose 145 H Calcium 8.3 L Magnesium 2.0 Total Bilirubin 0.6 AST 10 L ALT 10 Alkaline Phosphatase 73 Total Protein 6.3 Albumin 3.5 L Globulin 2.8 Albumin/Globulin Ratio 1.3 08/03/17 05:15 WBC RBC Hgb Hct MCV MCH MCHC Differential RDW Plt Count MPV Neutrophils % Lymphocytes % Monocytes % Eosinophils % Basophils % Sodium 134 L Potassium 3.6 Chloride 103 Carbon Dioxide 22.3 Anion Gap 12.3 BUN 15 Creatinine 0.7 Est GFR ( Amer) > 60.0 Est GFR (Non-Af Amer) > 60.0 BUN/Creatinine Ratio 21.4 Glucose 111 H Calcium 8.4 L Magnesium Total Bilirubin 0.8 AST 12 L ALT 9 Alkaline Phosphatase 73 Total Protein 6.4 Albumin 3.4 L Globulin 3.0 Albumin/Globulin Ratio 1.1 - Assessment Assessment: Current Active Problems Problem Status Onset RIGHT UPPER QUADRANT PAIN Acute abdominal pain acute cholecystitis with acute cholelithiasis hypokalemia dehydration leukocytosis hypertension GERD - Plan Plan: admit to med/surg general surgical consult GI consult keep NPO start IV fluids pain meds HIDA scan pending. IV antibiotics.
--- NOTE | 2017-08-03 08:21 | Diagnostic Imaging Report ---
Exam: HIDA scan. HISTORY: Acute cholecystitis. Findings: The study is extremely poor quality. Utilizing 4.8 mCi technetium 99m Choletec examination liver and biliary G was obtained. The study demonstrates normal uptake of radiopharmaceutical throughout the liver parenchyma. The common bile duct at 20 minutes with normal excretion right midcervical to small bowel. Delayed views of the gallbladder failed visualization of gallbladder consistent with obstruction of cystic duct. This most likely represent acute cholecystitis. IMPRESSION: Nonvisualization of the cystic duct, obstruction of cystic duct no visualization of gallbladder most likely acute cholecystitis.
[2017-08-03 08:42] LABS: AMYLASE SERUM 10 U/L (29-103); CHOLESTEROL 136 mg/dL (<200); HDL -HIGH DENSITY LIPOPROTEIN 34 mg/dL (23-92); LIPASE 7 U/L (11-82); TRIGLYCERIDES 87 mg/dL (<150)
--- NOTE | 2017-08-03 09:45 | Consultation ---
DATE OF CONSULTATION: SURGICAL CONSULTATION REFERRING PHYSICIAN: Dr. De Souza. REASON FOR CONSULTATION: Gallstones. Thank you for referring this patient to me. HISTORY OF PRESENT ILLNESS: This is a 57-year-old male who came into the Emergency Room because of several days of abdominal pain, nausea and vomiting. He underwent CT scan of the abdomen, which showed gallstones and a HIDA scan was done which showed nonvisualization of the gallbladder. LABORATORY STUDIES: Show WBC slightly elevated to 14,900; neutrophils of 86%. Chemistry showed slight elevation of the total bilirubin at 1.3, which came down today to 0.8. SOCIAL HISTORY: The patient claims he smokes cigars. He drinks occasionally. 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 PHYSICAL EXAMINATION: Now, there is moderate tenderness in right upper quadrant. Informed consent discussed with the patient with the nurse aviation electrical technician regarding the need for treatment of the acute cholecystitis with laparoscopic versus open cholecystectomy. The patient claimed that he has seen stones passed in the urine and refuses to have the procedure done in spite of all the explanations of the no relationship with you in the gallstones and kidney stones. The patient insists on going home. JOB# [id number]
== END 2017-08-03 10:30 | disposition left against medical advice (07) ==
LOC: ER 09:53 → MSI 18:30
PROVIDERS: ADMIT Family Medicine; ATTEND Family Medicine
DX: K80.00 Calculus of gallbladder with acute cholecystitis without obstruction (principal); E86.0 Dehydration; Z53.29 Procedure and treatment not carried out because of patient's decision for other reasons; F17.210 Nicotine dependence, cigarettes, uncomplicated; K21.9 Gastro-esophageal reflux disease without esophagitis; K27.9 Peptic ulcer, site unspecified, unspecified as acute or chronic, without hemorrhage or perforation; E87.6 Hypokalemia; I10 Essential (primary) hypertension
CPT/HCPCS: 36415-UA; 78226-TC; 80048-TC; 80053-TC; 80061-TC; 80076-TC; 81001-TC; 82150-TC; 83605; 83690-TC; 83735-TC; 84443-TC; 85007-TC; 85025-TC; 85027-TC; 87086-90; 90799; 96375; A9537; J0696; J1885; J1956; J2270; J3480; J7040